=== PATIENT | male | born 1970 | race Two or more races ===

== ENCOUNTER 2019-01-20 20:55 | Emergency (ER) | payer MEDICAID ==
[~2019-01-20] VITALS: Ht 162.6 cm; Wt 84.8 kg
[2019-01-20 21:02] VITALS: BP 152/60
[2019-01-20] MEDS ORDERED: ATORVASTATIN CA20 MG ORAL (21:03)
[2019-01-20] MEDS ORDERED: MAGNESIUM OXID400 M2 PO (21:03)
[2019-01-20] MEDS ORDERED: IMITREX25 MG PO (21:03)
[2019-01-20] MEDS ORDERED: LOSARTAN-HCTZ1 EAC2 ORAL (21:03)
--- NOTE | 2019-01-20 21:05 | NUR ---
ED Nurse Note: Pt waslked in to ED C/O elevated BP. Pt Bp is 166/98 at this time. pt C/O COPELAND and blurry vission.
[2019-01-20] MEDS ORDERED: Ketorolac 30mg Inj ONE (21:37)
--- NOTE | 2019-01-20 21:39 | NUR ---
ED Nurse Note: keft to CT
[2019-01-20] MEDS ORDERED: Methocarbamol 750mg tab ORAL ONE (21:45)
[2019-01-20] MEDS ORDERED: Ketorolac 30mg Inj IM ONE (21:45)
--- NOTE | 2019-01-20 21:48 | NUR ---
ED Nurse Note: returnred from CT
--- NOTE | 2019-01-20 21:54 | NUR ---
ED Nurse Note: all due meds given. pt is resting is bed. BP 157/63, DE 56, RR19, T 98.0
--- NOTE | 2019-01-20 22:15 | Emergency Room Report ---
History of Present Illness General Chief Complaint: Headache Source: Patient Present Illness HPI Disclaimer: Please note that this report is being documented using DRAGON technology. This can lead to erroneous entry secondary to incorrect interpretation by the dictating instrument. HPI: This a 48-year-old male with a history of newly diagnosed migraine headaches presenting for evaluation of headache. He notes 3 days of throbbing right-sided headache originating at the base of the skull and wrapping around over the top. He denies fever, confusion, changes in concentration, ataxia or changes in balance or coordination. He has been taking Tylenol, magnesium and sumatriptan which he got from his PMD. No significant improvement in his symptoms. He reports neck pain and upper shoulder pain bilaterally but worse on the right. Cannot recall a head or neck injury. Denies any rash. Otherwise , denies chest pain, shortness of breath, cough, vomiting, diarrhea, abdominal pain or cramping or flank pain. PMH: Migraine PSH: None Allergies: None Social Hx: Denies drug or alcohol abuse Allergies: Coded Allergies: No Known Allergies (Unverified , 01/20/19) Nursing Documentation-PMH Past Medical History: No History, Except For Hx Hypertension: Yes History Of Psychiatric Problem: Yes - depression Review of Systems All Other Systems: negative except mentioned in HPI Physical Exam Vital Signs Date Time Temp Pulse Resp B/P (MAP) Pulse Ox O2 Delivery O2 Flow Rate FiO2 01/20/19 20:58 98.2 64 14 166/94 (118) 97 Room Air General: Awake and alert, no acute distress HEENT: NC/AT. EOMI. PERRLA. No nystagmus. Facial expressions are symmetrical. No facial droop. Cardiovascular: RRR. S1 and S2 normal. No murmur appreciated Resp: Normal work of breathing. No cough, wheezing or crackles appreciated Skin: Intact. No abrasions, laceration or rash over the exposed skin MSK: Normal tone and bulk. Moving all extremities. No obvious deformity. Neuro: Awake and alert. Mentating appropriately. Facial expression symmetrical. No dysarthria, no ataxia on [id number] testing. Sensation to light touch is intact over the upper and lower extremities. The patient has intact speech with good repetition, comprehension. Fund of knowledge is full. No aphasia, no neglect. Back/Spine: There is no significant tenderness over the midline in the cervical , thoracic or lumbosacral spine. There is moderate paraspinal tenderness over the cervical spine and upper thoracic spine. There is significant tenderness over the trapezius and the sternocleidomastoids particularly over the insertion points at the base of the skull. There is tenderness over the trapezius and supraspinatus muscles bilaterally. NIH: 0 Medical Decision Making Diagnostic Impression: Primary Impression: Tension headache Additional Impression: Neck pain ER Course 48-year-old male presents for evaluation of neck pain and headache for the past few days not responsive to Tylenol, sumatriptan or magnesium. Differential includes but is not limited to occult fracture or injury, intracranial hemorrhage, intracranial mass, migraine headache, tension headache, cluster headache, cervical strain, muscle spasm. Physical exam and history more consistent with a tension headache as a result of severe spasm of the trapezius however we will obtain a CT scan of the head to rule out any significant intracranial pathology. She will be treated in the emergency department with Toradol and muscle relaxants. Will reevaluate frequently and expand work-up as needed. His physical exam is nonfocal and largely reassuring. CT/MRI/US Diagnostic Results CT/MRI/US Diagnostic Results : Impression EXAM: CT Head Without Intravenous Contrast CLINICAL HISTORY: PAIN TECHNIQUE: Axial computed tomography images of the head/brain without intravenous contrast. CTDI is 70 mGy and DLP is 1347 mGy-cm. One or more of the following dose reduction techniques were used: automated exposure control, adjustment of the mA and/or kV according to patient size, use of iterative reconstruction technique. COMPARISON: No relevant prior studies available. FINDINGS: Brain: Unremarkable. No hemorrhage. No significant white matter disease. No edema. Ventricles: Unremarkable. No ventriculomegaly. Bones/joints: Unremarkable. No acute fracture. Soft tissues: Unremarkable. Sinuses: Unremarkable as visualized. No acute sinusitis. Mastoid air cells: Unremarkable as visualized. No mastoid effusion. Other findings: Motion degraded study. IMPRESSION: Motion degraded study with no evidence of acute intracranial abnormality. Radiologist: Elias Rubin MD Electronically Signed: 01/20/19 21:54 Study ready at 21:51 and initial results transmitted at 21:54 Last Vital Signs Date Time Temp Pulse Resp B/P (MAP) Pulse Ox O2 Delivery O2 Flow Rate FiO2 01/20/19 21:02 98.2 55 18 152/60 98 Room Air Status: improved Reevaluation Impression CT scans returned unremarkable. The patient reports significant improvement after receiving Toradol, Valium and Robaxin. He will be discharged home with additional prescription for Robaxin and we will started him on Excedrin for the added benefits of caffeine for suspected tension headache. The patient was given very strict return precautions and I instructed him to return to the emergency department if he experiences any return of his head pain, develops return blurred vision, altered mental status, fever, ataxia or any other sudden changes in his health. He understands and agrees with this treatment plan was discharged home. Disposition: HOME, SELF-CARE Condition: Stable Scripts Aspirin/Acetaminophen/Caffeine (EXCEDRIN EXTRA STRENGTH CAPLET) 1 Each Tablet 1 EACH PO Q6HR PRN for For Pain for 7 Days, #28 TAB Prov: Eugenio Rivas MD 01/20/19 Methocarbamol* (ROBAXIN-750*) 750 Mg Tablet 750 MG PO QID for 7 Days, #28 TAB 0 Refills Prov: Eugenio Rivas MD 01/20/19 Referrals: Norma Arcos. [facility] Patient Instructions: Knee Pain, Chest Contusion, [id number] Eugenio Rivas MD Jan 20, 2019 22:15
[2019-01-20] MEDS ORDERED: EXCEDRIN EXTRA1 EAC1 PO (23:54)
[2019-01-20] MEDS ORDERED: ROBAXIN-750750 MG PO (23:54)
[2019-01-21 00:01] VITALS: BP 150/65
--- NOTE | 2019-01-21 00:01 | NUR ---
ER DISCHARGE NOTE: Patient is cleared to be discharged per ERMD, pt is aox4, on room air, with stable vital signs. pt was given dc and prescription instructions, pt was able to verbalize understanding, pt id band removed without complications. pt is able to ambulate with steady gait. pt took all belongings.
[2019-01-21] MEDS ORDERED: SOMA250 MG PO (18:48)
[2019-01-21] MEDS ORDERED: IBUPROFEN600 MG ORAL (18:48)
[2019-01-21] MEDS ORDERED: LIDODERM700 M1 TOPIC (18:48)
== END 2019-01-21 00:01 | disposition home or self-care (01) ==
LOC: EMR 21:45
DX: G44.209 Tension-type headache, unspecified, not intractable (principal); M54.2 Cervicalgia; F32.9 Major depressive disorder, single episode, unspecified; I10 Essential (primary) hypertension
CPT/HCPCS: 70450; 96372; 99283; J1885

== ENCOUNTER → 2019-01-21 | Emergency (ER) | payer MEDICAID ==
[~2019-01-21] VITALS: Ht 162.6 cm; Wt 84.8 kg
[~2019-01-21] MED LIST: ATORVASTATIN CA20 MG ORAL; EXCEDRIN EXTRA1 EAC1 PO; IBUPROFEN600 MG ORAL; IMITREX25 MG PO; LIDODERM700 M1 TOPIC; LOSARTAN-HCTZ1 EAC2 ORAL; MAGNESIUM OXID400 M2 PO; ROBAXIN-750750 MG PO; SOMA250 MG PO; traMADol 50mg tab ORAL ONE
[2019-01-21 17:46] VITALS: BP 154/81
--- NOTE | 2019-01-21 17:46 | NUR ---
ED Nurse Note: Pt walked in c/o right sided non-radiating neck pain for 2 days no injury reported. Pt rates pain at 9/10. V/S stable with no s/s of acute distress noted at this time. Pt reports coming in to [facility] ER for the same reason yesterday.
--- NOTE | 2019-01-21 18:44 | Emergency Room Report ---
History of Present Illness General Chief Complaint: Neck Pain Source: Patient Present Illness HPI 48-year-old male presents to the emergency department complaining of 10 out of 10 in severity progressive and localized right-sided neck pain x3 days. Patient reports he was here in the emergency department yesterday where he was treated for muscle spasm with IM Toradol and prescription for 750 mg Robaxin 4 times a day. Patient denies appreciable trauma or fall he denies fevers, chills , photophobia, nausea, vomiting, ear pain, tinnitus, dizziness, or upper extremity weakness/pain. Patient states that he took the prescription as prescribed however it had no effect on his symptoms. Patient reports turning his head to look towards the right exacerbates his pain. Patient describes his pain radiating up and down the right side of the neck to the back of his head and almost to the right shoulder. He reports turning his head to the left or moving his head up and down has little to no effect on exacerbating his symptoms. Patient denies recent chiropractic work. Denies paresthesias of the face or upper extremity. He denies slurred speech, dizziness or visual changes. No other aggravating or relieving factors at this time. Allergies: Coded Allergies: No Known Allergies (Unverified , 01/20/19) Patient History Past Medical History: see triage record Past Surgical History: none Pertinent Family History: none Reviewed Nursing Documentation: PMH: Agreed; PSxH: Agreed Nursing Documentation-PMH Past Medical History: No History, Except For Hx Hypertension: Yes Review of Systems All Other Systems: negative except mentioned in HPI Physical Exam Vital Signs Date Time Temp Pulse Resp B/P (MAP) Pulse Ox O2 Delivery O2 Flow Rate FiO2 01/21/19 17:43 97.9 63 17 154/81 (105) 99 Room Air Sp02 EP Interpretation: reviewed, normal General Appearance: no apparent distress, alert, GCS 15, non-toxic Head: normocephalic, atraumatic Eyes: bilateral eye normal inspection, bilateral eye PERRL ENT: hearing grossly normal, normal pharynx, normal voice, TMs + canals normal , other - no evidence of mastoiditis Neck: full range of motion, no bony tend, tender lateral - Right lateral ttp, Tenderness along the lateral aspect of the right trapezius muscle Respiratory: lungs clear, normal breath sounds, speaking full sentences Cardiovascular #1: regular rate, rhythm Cardiovascular #2: 2+ radial (R), 2+ radial (L) Musculoskeletal: back normal, gait/station normal, normal range of motion, tender - Tenderness along the lateral aspect of the right trapezius muscle. FROM of the right UE. FROM of the C-Spine. Neurologic: alert, oriented x3, responsive, motor strength/tone normal, sensory intact, normal gait, speech normal, grossly normal Psychiatric: judgement/insight normal Skin: no rash Lymphatic: no adenopathy Medical Decision Making PA Attestation Dr. Pinto Is my supervising Physician whom patient management has been discussed with. Diagnostic Impression: Primary Impression: Neck pain ER Course 48-year-old male presents to the emergency department complaining of 10 out of 10 in severity progressive and localized right-sided neck pain x3 days. Patient reports he was here in the emergency department yesterday where he was treated for muscle spasm with IM Toradol and prescription for 750 mg Robaxin 4 times a day. Patient denies appreciable trauma or fall he denies fevers, chills , photophobia, nausea, vomiting, ear pain, tinnitus, dizziness, or upper extremity weakness/pain. Patient states that he took the prescription as prescribed however it had no effect on his symptoms. Patient reports turning his head to look towards the right exacerbates his pain. Patient describes his pain radiating up and down the right side of the neck to the back of his head and almost to the right shoulder. He reports turning his head to the left or moving his head up and down has little to no effect on exacerbating his symptoms. Patient denies recent chiropractic work. Denies paresthesias of the face or upper extremity. He denies slurred speech, dizziness or visual changes. No other aggravating or relieving factors at this time. Ddx considered but are not limited to muscle strain/spasm, vertebral artery dissection, migraine, SAH, Tension COPELAND, LAD, fracture, just to name a few. Vital signs: are WNL, pt. is afebrile H&PE are most consistent with neck pain that is muscular in etiology. Tenderness along the lateral aspect of the right trapezius muscle. No appreciable lymphadenopathy. Patient is in no acute distress, nontoxic in appearance, and does not exhibit any focal neurological deficits. ORDERS: - none required at this time, dx is clinical. review of patient's previous visits chart shows that patient received CT imaging of his head yesterday which was within normal limits. ED INTERVENTIONS: -Lidoderm patch -600 mg Motrin -I do not identify an emergent condition at this time. With current presentation , pt. is stable for close outpatient follow up and conservative treatment. D/ w pt. to return promptly to ED with worsening or new symptoms.- Pt. verbalizes' understanding and agreement with proposed treatment plan. DISCHARGE: At this time pt. is stable for d/c to home. Will provide printed patient care instructions, and any necessary prescriptions. Care plan and follow up instructions have been discussed with the patient prior to discharge. Last Vital Signs Date Time Temp Pulse Resp B/P (MAP) Pulse Ox O2 Delivery O2 Flow Rate FiO2 01/21/19 17:46 97.9 63 17 154/81 99 Room Air Status: improved Disposition: HOME, SELF-CARE Condition: Stable Scripts Ibuprofen* (MOTRIN*) 600 Mg Tablet 600 MG ORAL THREE TIMES A DAY, #30 TAB 0 Refills Prov: Cherie Snow 01/21/19 Lidocaine Patch* (Lidoderm Patch*) 1 Each Adh..patch 1 PATCH TOPIC DAILY, #30 PATCH 0 Refills Patch(es) may remain in place for up to 12 hours in any 24-hour period. Prov: Cherie Snow 01/21/19 Carisoprodol (SOMA) 250 Mg Tablet 250 MG PO Q6H for 1 Day, #3 TAB Prov: Cherie Snow 01/21/19 Patient Instructions: Muscle Pain, Adult, Soft Tissue Injury of the Neck, Easy- to-Read Additional Instructions: Take medications as directed. Follow up with a Primary Care Provider in 3-5 days, even if your symptoms have resolved. --Please review list of primary care clinics, if you do not already have a primary care provider Return sooner to ED if new symptoms occur, or current symptoms become worse. Do not drink alcohol, drive, or operate heavy machinery while taking Robaxin ( Muscle Relaxers) as this may cause drowsiness. - Please note that this Emergency Department Report was dictated using [email or web address] manager technology software, occasionally this can lead to erroneous entry secondary to interpretation by the dictation equipment. Cherie Snow Jan 21, 2019 18:44
--- NOTE | 2019-01-21 19:03 | NUR ---
ER DISCHARGE NOTE: Patient is cleared to be discharged per PA, pt is aox4, on room air, with stable vital signs. pt was given dc and prescription instructions, pt was able to verbalize understanding, pt id band removed. pt is able to ambulate with steady gait. pt took all belongings.
== END | disposition home or self-care (01) ==
LOC: EMR 18:00
DX: M54.2 Cervicalgia (principal); I10 Essential (primary) hypertension
CPT/HCPCS: 99283

== ENCOUNTER 2019-05-12 15:49 | Emergency (ER) | payer MEDICAID ==
[~2019-05-12] VITALS: Ht 167.6 cm; Wt 83.9 kg
[~2019-05-12 15:49] MED LIST changes: -traMADol 50mg tab ORAL ONE
[2019-05-12 16:00] VITALS: BP 132/69
[2019-05-12] MEDS ORDERED: ACETAZOLAMIDE250 MG ORAL (16:00)
[2019-05-12] MEDS ORDERED: LISINOPRIL20 MG ORAL (16:00)
[2019-05-12] MEDS ORDERED: Ketorolac 30mg Inj IM ONE (16:45)
[2019-05-12] MEDS ORDERED: Methocarbamol 750mg tab ORAL ONE (16:45)
--- NOTE | 2019-05-12 16:50 | Emergency Room Report ---
History of Present Illness General Chief Complaint: Headache Present Illness HPI 49-year-old male with history of recurrent posterior headache and neck pain here complaining of exacerbation of neck and headache x3 days. Patient was previously seen at [facility] for possible migraine headache. Patient reports that he followed up with primary care provider, after taking Excedrin, Robaxin, sumatriptan and not having any improvement. Patient was never sent to a neurologist. Patient denies any usual unilateral headache, photophobia, nausea vomiting. Patient reports that primary doctor mentions that he is not having migraine headaches. 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 Patient described the pain 10 out of 10, aching and radiating to posterior head at this time. Denies any recent fall or injury to the head. Has full range of motion of his neck. Denies tingling and numbness. Denies blurry vision at this time. Denies chest pain, shortness of breath, palpitation, no other associated symptoms. Patient reports that he is compliant with taking his blood pressure medication. Denies URI symptoms, fever and chills, meningismus Allergies: Coded Allergies: No Known Allergies (Unverified , 01/20/19) Patient History Past Medical History: see triage record Past Surgical History: none Pertinent Family History: none Immunizations: UTD Reviewed Nursing Documentation: PMH: Agreed; PSxH: Agreed Nursing Documentation-PMH Hx Hypertension: Yes Review of Systems All Other Systems: negative except mentioned in HPI Physical Exam Vital Signs Date Time Temp Pulse Resp B/P (MAP) Pulse Ox O2 Delivery O2 Flow Rate FiO2 05/12/19 15:55 98.1 66 17 132/69 (90) 99 Sp02 EP Interpretation: reviewed, normal General Appearance: no apparent distress, alert, GCS 15, non-toxic Head: normocephalic, atraumatic Eyes: bilateral eye normal inspection, bilateral eye PERRL ENT: hearing grossly normal, normal pharynx, no angioedema, normal voice Neck: full range of motion, supple, thyroid normal, no meningismus, no bony tend, no carotid bruits, supple/symm/no masses Respiratory: chest non-tender, lungs clear, normal breath sounds, no rhonchi, no wheezing, speaking full sentences Cardiovascular #1: regular rate, rhythm, no edema, no murmur, normal capillary refill Cardiovascular #2: 2+ carotid (R), 2+ carotid (L), 2+ radial (R), 2+ radial (L) Gastrointestinal: normal bowel sounds, non tender, soft, non-distended, no guarding, no rebound Rectal: deferred Neurologic: alert, motor strength/tone normal, home and family living professor III-XII nml as tested, EOM palsy, oriented, DTRs symmetric, distal neuro normal, oriented x3, sensory intact, cerebellar normal Psychiatric: judgement/insight normal, memory normal, mood/affect normal, no suicidal/homicidal ideation Skin: no rash Lymphatic: no adenopathy Medical Decision Making PA Attestation All my diagnosis and treatment plans were reviewed ad discussed with my supervising physician Dr. Sahni Diagnostic Impression: Primary Impression: Tension headache Additional Impression: Cervical strain ER Course 49-year-old male with history of recurrent posterior headache and neck pain here complaining of exacerbation of neck and headache x3 days. Patient was previously seen at [facility] for possible migraine headache. Patient reports that he followed up with primary care provider, after taking Excedrin, Robaxin, sumatriptan and not having any improvement. Patient was never sent to a neurologist. Patient denies any usual unilateral headache, photophobia, nausea vomiting. Patient reports that primary doctor mentions that he is not having migraine headaches. 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 Patient described the pain 10 out of 10, aching and radiating to posterior head at this time. Denies any recent fall or injury to the head. Has full range of motion of his neck. Denies tingling and numbness. Denies blurry vision at this time. Denies chest pain, shortness of breath, palpitation, no other associated symptoms. Patient reports that he is compliant with taking his blood pressure medication. Denies URI symptoms, fever and chills, meningismus Ddx considered but are not limited to: Migraine headache with aura, migraine headache without aura, tension headache, cluster headache, TBI, subarachnoid hemorrhage, cervical strain versus sprain Vital signs: are WNL, pt. is afebrile H&PE are most consistent with: Cervical strain leading to tension headache ORDERS: Jose Trinidadaxin, lidocaine patch ER intervention: Toradol, Robaxin, lidocaine patch DISCHARGE: At this time pt. is stable for d/c to home. Will provide printed patient care instructions, and any necessary prescriptions. Care plan and follow up instructions have been discussed with the patient prior to discharge. Patient to follow-up with your provider, follow-up with neurologist to be properly diagnosed with possible migraine headache. If worsening symptoms return to the emergency room. Avoid bending head and neck for prolonged hours as it causes more tension in your neck and head. Last Vital Signs Date Time Temp Pulse Resp B/P (MAP) Pulse Ox O2 Delivery O2 Flow Rate FiO2 05/12/19 16:00 98.1 63 17 132/69 99 Disposition: HOME, SELF-CARE Condition: Stable Scripts Lidocaine Patch* (Lidoderm Patch*) 1 Each Adh..patch 1 PATCH TOPIC DAILY, #30 PATCH Patch(es) may remain in place for up to 12 hours in any 24-hour period. Prov: Alma Rosa Ramírez 05/12/19 Methocarbamol* (ROBAXIN-500*) 500 Mg Tablet 500 MG ORAL TID PRN for For Pain, #15 TAB 0 Refills Prov: Alma Rosa Ramírez 05/12/19 Ibuprofen (Ibu) 800 Mg Tablet 800 MG PO BID, #20 TAB Prov: Alma Rosa Ramírez 05/12/19 Patient Instructions: Cervical Strain and Sprain With Rehab-Sports[facility], Tension Headache Additional Instructions: Take medication as directed, your headache is secondary to pain radiating from your neck. Due to your type of job and being the cause and bending your neck most of the time he has developed a lot of tension in your neck and is now radiating to your posterior head. Follow-up with your primary care provider, physical therapy may be beneficial. If worsening symptoms return to the emergency room Alma Rosa Ramírez May 12, 2019 16:50
[2019-05-12] MEDS ORDERED: ROBAXIN-500MG ORAL (16:51)
[2019-05-12] MEDS ORDERED: LIDODERM700 M1 TOPIC (16:51)
[2019-05-12] MEDS ORDERED: IBU800 MG PO (16:51)
[2019-05-12 17:07] VITALS: BP 132/65
== END 2019-05-12 17:07 | disposition home or self-care (01) ==
LOC: EMR 16:50
DX: G44.209 Tension-type headache, unspecified, not intractable (principal); S16.1XXA Strain of muscle, fascia and tendon at neck level, initial encounter; I10 Essential (primary) hypertension; X58.XXXA Exposure to other specified factors, initial encounter; Y93.9 Activity, unspecified; Y92.9 Unspecified place or not applicable
CPT/HCPCS: 96372; J1885; Z7502; 99283